=== PATIENT | female | born 1960 | race African-American/Black ===

== ENCOUNTER 2018-01-14 07:06 | Inpatient (IN) | payer OTHER ==
[~2018-01-14] VITALS: Ht 157.5 cm; Wt 71.3 kg
[~2018-01-14 07:06] MED LIST: ALBU05
[2018-01-14] MEDS ORDERED: ONDANSETRON HCL 4MG/2ML INJ IV STA (07:24)
[2018-01-14] MEDS ORDERED: MORPHINE SULFATE 4 MG/ML CPJ (NOT FOR IM USE) IV STA (07:24)
[2018-01-14] MEDS ORDERED: SODIUM CHLORIDE 0.9% 1,000 ML IV ONE (07:32)
[2018-01-14 08:28] LABS: BASOPHILS % 1.1 % (0.0-2.0); EOSINOPHILS % 8.3 % (0.0-5.0); HEMATOCRIT. 42.8 % (36.0-48.0); HEMOGLOBIN. 14.3 g/dL (12.0-16.0); LYMPHOCYTES % 20.2 % (20.0-50.0); MEAN CORPUSCULAR HEMOGLOBIN 29.4 pg (28.0-32.0); MEAN PLATELET VOLUME 8.8 fl (7.4-10.4); MONOCYTES % 6.2 % (2.0-8.0); NEUTROPHILS % 64.2 % (40.0-76.0); PLATELET 332 x1000/uL (130-400); RED BLOOD CELL COUNT 4.86 mill/uL (4.2-5.4)
[2018-01-14 08:37] LABS: PROTHROMBIN TIME 10.3 sec (9.1-11.1)
[2018-01-14 09:12] LABS: CHLORIDE 110 mEq/L (98-107)
[2018-01-14 09:52] LABS: CLARITY URINE CLEAR (CLEAR); COLOR URINE YELLOW (YELLOW); KETONES URINE NEGATIVE (NEGATIVE); LEUKOCYTE ESTERASE URINE 1+ (NEGATIVE); NITRITE URINE NEGATIVE (NEGATIVE); OCCULT BLOOD URINE TRACE (NEGATIVE); PH URINE 7.5 (4.5-8.0); PROTEIN URINE NEGATIVE (NEGATIVE); SPECIFIC GRAVITY URINE 1.012 (1.005-1.030); UROBILINOGEN URINE 0.2 E.U./dL (0.2-1.0)
[2018-01-14] MEDS ORDERED: TRAMADOL 50MG TABLET PO PRN (11:15)
[2018-01-14] MEDS ORDERED: NA PHOS,M-B/NA PHOS,DI-BA ENEMA 118ML PR PRN (11:15)
[2018-01-14] MEDS ORDERED: DIPHENHYDRAMINE 50MG/ML VIAL IV PRN (11:15)
[2018-01-14] MEDS ORDERED: MAGNESIUM/ALUMINUM HYDROXIDE/SIMETHICONE 30ML UDC PO PRN (11:15)
[2018-01-14] MEDS ORDERED: LORAZEPAM 0.5MG TABLET PO PRN (11:15)
[2018-01-14] MEDS ORDERED: ACETAMINOPHEN 325MG TABLET PO PRN (11:15)
[2018-01-14] MEDS ORDERED: ONDANSETRON HCL 4MG/2ML INJ IV PRN (11:15)
[2018-01-14] MEDS ORDERED: CLONIDINE 0.1MG TABLET PO PRN (11:15)
[2018-01-14] MEDS ORDERED: DOCUSATE SODIUM 100MG CAPSULE PO PRN (11:15)
[2018-01-14] MEDS ORDERED: ZOLPIDEM TARTRATE 5MG TABLET PO PRN (11:15)
[2018-01-14] MEDS ORDERED: KETOROLAC 15MG/ML VIAL IV PRN (11:15)
[2018-01-14] MEDS ORDERED: GUAIFENESIN 200MG/10ML SUGAR FREE UDC PO PRN (11:15)
[2018-01-14 15:37] LABS: CREATINE KINASE 132 IU/L (26-192)
[2018-01-14 15:38] LABS: CREATINE KINASE MB FRACTION < 1.0 ng/mL (0.5-3.6)
[2018-01-14 16:30] VITALS: BP 118/84
[2018-01-14] MEDS: ENOXAPARIN 40MG/0.4ML SYR SUBCUT SCH (16:35)
[2018-01-14] MEDS ORDERED: SODIUM CHLORIDE 0.9% 1000ML BAG (SEPSIS BOLUS) IV ONE (16:45)
[2018-01-14 16:52] VITALS: BP 118/84
[2018-01-14] MEDS ORDERED: SODIUM CHLORIDE 0.9% 1,800 ML IV SCH (17:00)
[2018-01-14] MEDS ORDERED: LEVOFLOXACIN 500MG PREMIX 100 ML IV SCH ×2 (18:00→21:00)
[2018-01-14 20:00] VITALS: BP 125/90
[2018-01-14 20:23] LABS: *AMPHETAMINES SCREEN URINE NEGATIVE (NEGATIVE); *BARBITURATES SCREEN URINE NEGATIVE (NEGATIVE); *BENZODIAZEPINES SCREEN URINE NEGATIVE (NEGATIVE); *COCAINE SCREEN URINE NEGATIVE (NEGATIVE); METHADONE URINE SCREEN NEGATIVE (NEGATIVE); OPIATES URINE SCREEN NEGATIVE (NEGATIVE)
[2018-01-14 20:24] LABS: CANNABINOID URINE SCREEN NEGATIVE (NEGATIVE); PHENCYCLIDINE URINE SCREEN NEGATIVE (NEGATIVE)
[2018-01-14] MEDS: FAMOTIDINE 20MG TABLET PO SCH (21:00)
[2018-01-15] VITALS (7 sets, daily range): BP systolic 107–127; BP diastolic 70–104
[2018-01-15 00:30] LABS: CREATINE KINASE 99 IU/L (26-192)
[2018-01-15 00:32] LABS: CREATINE KINASE MB FRACTION < 1.0 ng/mL (0.5-3.6)
[2018-01-15] MEDS: IPRATROPIUM/ALBUTEROL 0.5-3(2.5)MG/3ML NEB INH PRN ×2 (00:53→19:54)
[2018-01-15 06:54] LABS: BASOPHILS % 1.2 % (0.0-2.0); EOSINOPHILS % 9.1 % (0.0-5.0); HEMATOCRIT. 39.1 % (36.0-48.0); HEMOGLOBIN. 13.1 g/dL (12.0-16.0); LYMPHOCYTES % 38.2 % (20.0-50.0); MEAN CORPUSCULAR HEMOGLOBIN 29.8 pg (28.0-32.0); MEAN CORPUSCULAR VOLUME 88.7 fL (81.0-99.0); MEAN PLATELET VOLUME 8.3 fl (7.4-10.4); MONOCYTES % 9.2 % (2.0-8.0); NEUTROPHILS % 42.3 % (40.0-76.0); PLATELET 321 x1000/uL (130-400); RED BLOOD CELL COUNT 4.41 mill/uL (4.2-5.4)
[2018-01-15 07:20] LABS: CHLORIDE 108 mEq/L (98-107)
[2018-01-15] MEDS: FAMOTIDINE 20MG TABLET PO SCH (09:00)
[2018-01-15] MEDS ORDERED: INFLUENZA VIRUS VACCINE(AFLURIA) 0.5ML SYR IM ONE (09:00)
[2018-01-15] MEDS ORDERED: ASPIRIN 325MG EC TABLET PO SCH (09:00)
[2018-01-15] MEDS: ENOXAPARIN 40MG/0.4ML SYR SUBCUT SCH (16:05)
== END 2018-01-15 21:00 | disposition short-term general hospital (02) | DRG 872 ==
LOC: ER 07:35 → 5WST 15:01 → EDBEDREQ 15:03 → EDBEDREQTM 15:03 → ENRESERV 15:43
PROVIDERS: ADMIT Internal Medicine; ATTEND Internal Medicine
DX: A41.9 Sepsis, unspecified organism (principal); E44.1 Mild protein-calorie malnutrition; J44.9 Chronic obstructive pulmonary disease, unspecified; R55 Syncope and collapse; Z87.442 Personal history of urinary calculi; Z88.0 Allergy status to penicillin; Z86.73 Personal history of transient ischemic attack (TIA), and cerebral infarction without residual deficits; Z68.28 Body mass index [BMI] 28.0-28.9, adult
CPT/HCPCS: 36415; 71250; 74176; 80053; 80061; 80305; 81003; 82550; 82553; 82962; 83036; 83605; 83690; 84484; 85025; 85610; 87040; 87086; 93005; 93306; 93970; 94640; 96365; 99285; J1956; J2270; J2405; J7030; J7040; J7620

== ENCOUNTER 2023-06-24 00:49 | Emergency (ER) | payer OTHER ==
[~2023-06-24] VITALS: Ht 160 cm; Wt 72.0 kg
[2023-06-24 01:40] VITALS: PULSE 94; RESP 16; O2SAT 97
[2023-06-24] MEDS: IPRATROPIUM BROMIDE (0.02%) 0.5MG/2.5ML NEB HHN STA (01:40)
[2023-06-24] MEDS: ALBUTEROL (0.083%) 2.5MG/3ML NEB HHN SCH (01:40)
[2023-06-24 01:59] LABS: HEMATOCRIT. 39.2 % (36.0-48.0); MEAN CORPUSCULAR HEMOGLOBIN 29.5 pg (28.0-32.0); MEAN CORPUSCULAR HGB CONC 33.1 g/dL (31.0-37.0); MEAN CORPUSCULAR VOLUME 89.1 fL (81.0-99.0); MEAN PLATELET VOLUME 8.1 fl (7.4-10.4); PLATELET 322 x1000/uL (130-400); RED CELL DISTRIBUTION WIDTH 13.9 % (11.6-14.6)
[2023-06-24 02:01] LABS: DIFFERENTIAL COMMENT 1
[2023-06-24] MEDS: METHYLPREDNISOLONE SOD SUCC 125MG/2ML (ACT-O-VIAL) IV STA (02:07)
[2023-06-24] MEDS: MAGNESIUM 2 G PREMIX 50 ML IV ONE (02:07)
[2023-06-24] MEDS: SODIUM CHLORIDE 0.9% 1,000 ML IV ONE (02:07)
[2023-06-24 02:19] LABS: LACTIC ACID 2.5 mmol/L (0.4-2.0)
[2023-06-24 02:30] LABS: ALANINE AMINOTRANSFERASE 19 IU/L (10-49); ALBUMIN 4.3 g/dL (3.2-4.8); ASPARTATE AMINOTRANSFERASE 23 IU/L (<34); BILIRUBIN TOTAL 0.3 mg/dL (0.1-1.0); CALCIUM 8.9 mg/dL (8.7-10.4); CARBON DIOXIDE 25 mEq/L (21-32); CHLORIDE 106 mEq/L (98-107); CREATININE 1.1 mg/dL (0.6-1.0); GLUCOSE 130 mg/dL (70-105); POTASSIUM 3.4 mEq/L (3.5-5.1); PROTEIN TOTAL 7.4 g/dL (6.0-8.3); SODIUM 139 mEq/L (136-145); UREA NITROGEN BLOOD 14 mg/dL (9-23)
[2023-06-24 02:32] LABS: TROPONIN I HIGH SENSITIVITY < 4 ng/L (3.0-34)
[2023-06-24 06:43] VITALS: BP 113/75; PULSE 79; RESP 14; TEMP 98.2
[2023-06-24 08:17] LABS: PLATELET ESTIMATE NORMAL
== END 2023-06-24 06:52 | disposition short-term general hospital (02) ==
LOC: ER 01:00
DX: J45.901 Unspecified asthma with (acute) exacerbation (principal); J96.91 Respiratory failure, unspecified with hypoxia; J44.9 Chronic obstructive pulmonary disease, unspecified; Z86.73 Personal history of transient ischemic attack (TIA), and cerebral infarction without residual deficits; Z88.0 Allergy status to penicillin; Z88.8 Allergy status to other drugs, medicaments and biological substances; Z20.822 Contact with and (suspected) exposure to COVID-19
CPT/HCPCS: 80053; 83880; 83605; 85025; 85379; 84484; 87804 ×2; 36415; 71045; 94640; 93005; 96365; 96375; 99291; 87426; J3475; J2930; J7030; Z7610 ×8